=== PATIENT | male | born 1950 | race Caucasian/White ===

== ENCOUNTER 2023-09-11 07:12 | Emergency (ER) | payer MEDICARE, SELFPAY ==
[2023-09-11 07:23] VITALS: BP 146/100
--- NOTE | 2023-09-11 08:22 | ED.GENMED ---
History of Present Illness
General
Chief Complaint: Musculo-Skeletal Complaint
Source: patient
Time Seen by Provider: 09/11/23 08:14
Travel History
Have you had any contact with someone who has COVID-19?: No
Do you have any symptoms of coronavirus? Fever > 100 degrees, chills, cough, shortness of breath, sore throat, loss of taste or smell, muscle aches, or headache?: No
History of Present Illness
History of Present Illness:
This patient is a 73-year-old male presents emergency department complaints of neck discomfort. The patient states that he was cutting the grass on Monday using a tractor and had an attached garden cart. He was making a lot of movements to try
maneuver the cart and feels that he 'twisted it' referring to his neck. He describes it as a gradual onset of a 'pulled muscle' type of pain the first was on the right side but is now much worse on the left side. Any movement makes the pain worse.
He says the pain feels like a really bad 'charley horse'. He denies associated trauma or fall, headache, dizziness, visual changes, change in swallowing, chest pain, dyspnea, numbness, tingling, focal weakness, chest pain, dyspnea, abdominal pain,
or other complaints. He denies swelling, sore throat, ear pain, fever, chills.
Past History
Past History
ED Past Medical History: Arrthythmia (Atrial fibrillation ), HTN and Hypercholesterolemia
ED Past Surgical History: None
Social History
Tobacco: Smoker
Alcohol: Daily (wine 2-3 glasses Medium size)
Drug: None
Personal:
Living: with family
Employment: Not employed
Family History
Family History: Negative Diabetes, Hypertension, Early CAD, Asthma or Cancer
Phy Exam
Physical Exam
Physical Exam:
GENERAL: Alert , in no apparent distress
EYE: pupils equal and reactive, no photophobia, no nystagmus, EOMI
NECK: Patient holds neck in midline position, hesitant to range due to discomfort, trachea midline, no swelling or redness no
ENT: o/p clr, mmm, no trismus, no drool, voice clear, TMs clear bilaterally.
CARDIAC: Irregularly irregular
LUNGS: Clear breath sounds bilaterally, no acute respiratory distress, no wheezes/rales/rhonchi
ABDOMEN: Soft, without focal tenderness, no r/g, no cvat
NEUROLOGICAL: Alert and oriented, no focal neuro deficits, sensation intact, cranial nerves II through XII intact, motor 5 out of 5
SKIN: Warm and dry, skin intact.
MUSCULOSKELETAL: No edema, well perfused.
PSYCH: Normal and appropriate interaction.
Course
Orders/Labs/Results
Orders:
Orders
09/11/23 07:16
EKG [Electrocardiogram (*1)] Stat
Reason for Study: Atrial Fibrillation
09/11/23 07:17
EKG- Treatment ONCE
09/11/23 08:22
diazePAM [Valium Injection] 5 mg IV NOW STA
09/11/23 10:25
Dexamethasone Sod Phosphate [Decadron] 10 mg IV NOW STA
09/11/23 12:21
Morphine Sulfate 4 mg IV NOW STA
Vital Signs
Initial and Last Documented VS:
Initial Vital Signs
Temp Pulse Resp BP Pulse Ox
98.0 F 100 18 146/100 99
09/11/23 07:23 09/11/23 07:23 09/11/23 07:23 09/11/23 07:23 09/11/23 07:23
Last Documented Vital Signs
Temp Pulse Resp BP Pulse Ox
98.0 F 74 18 148/94 96
09/11/23 07:23 09/11/23 11:02 09/11/23 11:02 09/11/23 11:02 09/11/23 11:02
*Critical Care Note
Total Time (30-74mins, 75-104mins- exclusive of procedures): Not Applicable
Update Note
Update Note:
Patient presents to the Emergency Department with ___neck pain
Number and Complexity of Problems Addressed at the Encounter
� Chronic conditions affecting care:
� Acute Exacerbation and/or Progression of Chronic Illness:
� Differential Diagnosis includes: But not limited to pharyngitis, muscular strain, dissection, etc. etc.
Amount and/or Complexity of Data to be Reviewed and Analyzed
� I performed an independent evaluation of and my interpretation is:
EKG:read by me afib, no acute ischemia
CT:
Xrays:
Laboratory Studies:
Other:
� Review of other/old records reveals:
� Clinical information was obtained by an independent historian:
� Prescriptions/Medications Considered but not given:
� Further testing considered but not performed: Strongly doubt dissection given mechanism of injury, how patient describes pain, gradual onset, etc. Of note, no associated airway or neurological symptoms noted. Will medicate
and reassess
Risk of Complications and/or Morbidity or Mortality of Patient Management
� Social determinants of health affecting care:
� Discussion with other providers (PCP, Hospitalists, Consultants, etc):
� Escalation of care including admission/observation vs risk of discharge considered: Multiple reassessments of patient, he has required several doses of medication to ultimately get relief. He feels much better now, got up out
of the bed himself, now freely nods yes and no without difficulty. He remains neurologically intact, no bruit noted, no chest pain, etc. Strongly suspect muscular strain based on history and physical, discussed with patient portance of follow-up
and reasons to return to the ER
ED Attending Note
-
Portions of this chart may have been created with voice recognition software.� Occasional wrong word or��sound alike� substitutions may have occurred due to the inherent limitations of voice recognition software.
Discharge Plan
Departure
Patient Disposition: Home (Routine Discharge)
Date of Disposition: 09/11/23
Time of Disposition: 13:21
Patient with high blood pressure during this ER visit?: Yes
Condition: Good
Discharge Problem:
Neck strain
Instructions: Cervical Muscle Strain, BLOOD PRESSURE
Prescriptions:
New
cyclobenzaprine 10 mg tablet
10 mg PO BID PRN (Reason: pain) Qty: 13 0RF
No Action
metoprolol succinate 25 MG tablet extended release 24 hr
12.5 mg PO BID
digoxin 0.125 MG tablet
0.125 mg PO DAILY
midodrine 2.5 mg Tablet
2.5 mg PO TID
atorvastatin 40 mg Tablet
40 mg PO DAILY
tramadol 50 mg Tablet
50 mg PO Q6H PRN (Reason: pain)
acetaminophen 500 mg Tablet
1,000 mg PO Q6H PRN (Reason: pain)
Eliquis 5 mg Tablet
5 mg PO BID
(DME) OneTouch Verio test strips Strip
Qty: 100 0RF
Rx Instructions:
As Directed Test 2 times per day in alternating pattern
E11.65
(DME) lancets [OneTouch Delica Plus Lancet] 33 gauge Misc
Qty: 100 0RF
Rx Instructions:
Test BID in pattern provided As Directed
E 11.65
prednisone 10 mg tablet
30 mg PO DAILY
Rx Instructions:
30mg daily 1 day, 20mg daily 2 days, 10mg daily last 2 days.
metformin 1,000 mg tablet
1,000 mg PO BID@0800,1700
Referrals:
Navin Baker DO [Family Provider] - Follow up in 2-3 days
Activity Restrictions/Additional Instructions:
IF YOU DEVELOP PERSISTENT/NEW/WORSENING PAIN, TROUBLE SWALLOWING, SEVERE HEADACHE, NUMBNESS, TINGLING, WEAKNESS, SWELLING, OR OTHER WORRISOME SIGNS, PLEASE RETURN TO THE ER IMMEDIATELY.
Interventions
Interventions:
*Risk Screen - Suicide Last Done: 09/11/23 07:25
*General Assessment Last Done: 09/11/23 07:25
*Neglect/Abuse Screening Last Done: 09/11/23 07:25
ED-Musculoskeletal Assessment Last Done: 09/11/23 07:49
Discharge Date and Time
Print Language: KENYAN
[2023-09-11] MEDS: VALIUM INJECTION 5 MG IV (08:42)
[2023-09-11] MEDS: DECADRON 10 MG IV (10:58)
[2023-09-11 11:02] VITALS: BP 148/94
[2023-09-11] MEDS: MORPHINE SULFATE 4 MG IV (12:24)
== END 2023-09-11 13:33 | disposition home or self-care (01) ==
LOC: EMR 07:12
PROVIDERS: EMERGENCY PHYSICIAN Emergency Medicine; FAMILY PHYSICIAN Family Medicine
DX: S16.1XXA Strain of muscle, fascia and tendon at neck level, initial encounter (principal); X50.1XXA Overexertion from prolonged static or awkward postures, initial encounter; Y93.H2 Activity, gardening and landscaping; Y92.007 Garden or yard of unspecified non-institutional (private) residence as the place of occurrence of the external cause; I10 Essential (primary) hypertension; E78.00 Pure hypercholesterolemia, unspecified; I48.91 Unspecified atrial fibrillation; F17.200 Nicotine dependence, unspecified, uncomplicated
CPT/HCPCS: 99284; 96374; 96375 ×2; 93005

== ENCOUNTER 2024-02-19 15:16 | Emergency (ER) | payer OTHER, SELFPAY ==
[2024-02-19] VITALS (7 sets, daily range): BP systolic 117–145; BP diastolic 74–92
--- NOTE | 2024-02-19 15:58 | ED.MUSCINJ ---
HPI-Injury
General
Chief Complaint: Musculo-Skeletal Complaint
Source: patient
Exam Limitations: none
Time Seen by Provider: 02/19/24 15:51
Nursing documentation reviewed up to this point in time: agreed with
History of Present Illness-Injury
Is this injury a work related problem?: No
Is pt an associate of [facility]?: No
Initial Injury comments:
Patient states a few days ago he rotated his mattress. Shortly after developed right hip and groin pain. Pain continues to worsen. Unable to bear weight. Brought to ED via EMS for eval. Taking gabapentin and tramadol without improvement. On
arrival to ED, temp 101. He denies chills, cough, abdominal pain, offers no other complaints.
Past History
Past History
ED Past Medical History: Arrthythmia (Atrial fibrillation ), HTN and Hypercholesterolemia
ED Past Surgical History: None
Social History
Tobacco: Smoker
Alcohol: Daily (wine 2-3 glasses Medium size)
Drug: None
Personal:
Living: with family
Employment: Not employed
Family History
Family History: Negative Diabetes, Hypertension, Early CAD, Asthma or Cancer
Review of Systems
Review of Systems
Allergies reviewed?: Yes
All Other Systems: ROS reviewed and negative except as documented in HPI and ROS
Constitutional: Reports fever
EENT: Reports no symptoms
Respiratory: Reports no symptoms
Cardiac: Reports no symptoms
ABD/GI: Reports no symptoms
: Reports no symptoms
Musculoskeletal: Reports joint pain (pain to right hip)
Skin: Reports no symptoms
Neurological: Reports no symptoms
Psychiatric: Reports no symptoms
Musculoskeletal Injury Exam
Musculoskeletal Injury Exam
Right Hip:
Pain with Movement?: Moderate
Tender to palpation?: Moderate
Soft tissue swelling?: None
External deformity and angulation?: None
Joint effusion?: None
Contusion?: None
Hematoma-local bleeding into tissue?: None
Strain- Sprain- Tear (Connective tissue injury)?: Moderate
Crepitus with movement?: No
Joint instability?: No
Malalignment/deformity?: No
Range of motion: Limited
Distal skin color and temperature: normal-warm & good color
Capillary Refill: normal
Normal distal neurovascular exam?: Yes
Peripheral Pulses: posterior tibial (right): 3+ and dorsalis pedis (right): 3+
Phy Exam
General Physical Exam
General Presentation: well appearing and no apparent distress
General age: appears stated age
General Skin: warm and dry
General Habitus: normal
General Mental: alert
Cardiovascular Exam
Cardiovascular Exam: regular rate/rhythm and no edema
Pulmonary Exam
Pulmonary Exam: lungs clear and no respiratory distress
Gastrointestinal Exam
Gastrointestinal Exam: non tender, soft and no organomegaly
Musculoskeletal Exam
Musculoskeletal Exam: neuro vasc intact
Skin Exam
Skin Exam: normal color, warm/dry and no rash
Psychiatric Exam
Psychiatric Exam: normal mood/affect
Injury Course
Orders/Labs/Results
Orders:
Orders
02/19/24 15:56
Acetaminophen [Tylenol] 1,000 mg PO NOW STA
Morphine Sulfate 4 mg IV NOW STA
Ondansetron Injectable [Zofran] 4 mg IV NOW STA
Hip, Right 2-3 Views [CR Hip - RT w/wo Pel 2-3 Vw*] Urgent
Comment:
Reason For Exam: pain
Include a pelvis x-ray?: Yes
02/19/24 15:57
CR Chest - 2 Views Urgent
Comment:
Reason For Exam: fever
02/19/24 16:12
COVID-19 Antigen Urgent
Source: Nasal Swab
Complete Blood Count/With Diff Urgent
Comprehensive Metabolic Panel Urgent
Influenza A+B Rapid Molecular Urgent
[facility] Source: Nasal Swab
Specimen Description:
02/19/24 17:27
HYDROmorphone [Dilaudid] 0.5 mg .ROUTE .STK-MED ONE
02/19/24 17:29
HYDROmorphone [Dilaudid] 0.5 mg IV NOW STA
02/19/24 19:11
Urinalysis Reflex To Culture Urgent
Date Specimen was Collected: 02/19/24
Time Specimen was Collected: 16:03
Urine Microscopic Reflex Cult Urgent
02/19/24 20:17
Oxycodone/Acetaminophen [Percocet 5/325] 1 tablet PO NOW STA
Abnormal Lab Results
02/19/24 02/19/24
16:12 19:11
RBC 3.65 L 10^6/uL
(4.70-6.10)
Hct 37.7 L %
(39.0-52.0)
MCV 103.3 H fL
(80.0-94.0)
MCH 35.6 H pg
(27.0-31.0)
Absolute Neuts (auto) 7.0 H 10^3/uL
(1.4-6.5)
Absolute Monos (auto) 1.2 H 10^3/uL
(0.1-0.6)
Lymphocytes % 17.1 L %
(20.5-51.1)
Monocytes % 11.7 H %
(1.7-9.3)
Chloride 96 L mmol/L
(98-107)
BUN 22 H mg/dl
(9-20)
Glucose 127 H mg/dl
(70-99)
Total Bilirubin 1.7 H mg/dl
(0.2-1.3)
Urine Albumin (Reflex) 3+ A
(Neg - Trace)
02/19/24 16:12
02/19/24 16:12
*Critical Care Note
Total Time (30-74mins, 75-104mins- exclusive of procedures): Not Applicable
ED Attending Note
-
Portions of this chart may have been created with voice recognition software.� Occasional wrong word or��sound alike� substitutions may have occurred due to the inherent limitations of voice recognition software.
Discharge Plan
Departure
Patient Disposition: Home (Routine Discharge)
Date of Disposition: 02/19/24
Time of Disposition: 20:17
Patient with high blood pressure during this ER visit?: No
Condition: Good
Covid-19: Not Applicable
Discharge Problem:
Acute right hip pain
Instructions: Muscle and Bone Pain (DC), Using Cold for Pain
Prescriptions:
New
oxycodone-acetaminophen [Percocet] 5-325 mg tablet
1 tab PO Q4HPRN PRN (Reason: pain) Qty: 12 0RF
No Action
metoprolol succinate 25 MG tablet extended release 24 hr
12.5 mg PO BID
digoxin 0.125 MG tablet
0.125 mg PO DAILY
midodrine 2.5 mg Tablet
2.5 mg PO TID
atorvastatin 40 mg Tablet
40 mg PO DAILY
tramadol 50 mg Tablet
50 mg PO Q6H PRN (Reason: pain)
acetaminophen 500 mg Tablet
1,000 mg PO Q6H PRN (Reason: pain)
Eliquis 5 mg Tablet
5 mg PO BID
(DME) OneTouch Verio test strips Strip
Qty: 100 0RF
Rx Instructions:
As Directed Test 2 times per day in alternating pattern
E11.65
(DME) lancets [OneTouch Delica Plus Lancet] 33 gauge Misc
Qty: 100 0RF
Rx Instructions:
Test BID in pattern provided As Directed
E 11.65
prednisone 10 mg tablet
30 mg PO DAILY
Rx Instructions:
30mg daily 1 day, 20mg daily 2 days, 10mg daily last 2 days.
metformin 1,000 mg tablet
1,000 mg PO BID@0800,1700
cyclobenzaprine 10 mg tablet
10 mg PO BID PRN (Reason: pain) Qty: 13 0RF
Referrals:
Navin Baker DO [Family Provider] - Tomorrow
Interventions
Interventions:
*Risk Screen - Suicide Last Done: 02/19/24 15:21
*General Assessment Last Done: 02/19/24 15:21
*Neglect/Abuse Screening Last Done: 02/19/24 15:21
*Nursing Disposition Last Done: 02/19/24 22:33
ED-Musculoskeletal Assessment Last Done: 02/19/24 16:33
Discharge Date and Time
Discharge Date/Time: 02/19/24 22:35
Print Language: SAMI
[2024-02-19] MEDS: MORPHINE SULFATE 4 MG IV (16:09)
[2024-02-19] MEDS: ZOFRAN 4 MG IV (16:10)
[2024-02-19] MEDS: TYLENOL 1000 MG PO (16:10)
[2024-02-19 16:26] LABS: % Basophils 0.4 % (0-2); % Eosinophils 0.7 % (0-6); % Immature Granulocytes 0.4 % (0-0.5); % Lymphocytes 17.1 % (20.5-51.1); % Monocytes 11.7 % (1.7-9.3); % Neutrophils 69.7 % (42.2-75.2); Absolute Eosinophils 0.1 10^3/uL (0-0.7); Absolute Lymphocytes 1.7 10^3/uL (1.2-3.4); Absolute Monocytes 1.2 10^3/uL (0.1-0.6); Hematocrit 37.7 % (39.0-52.0); Mean Corp Hgb Conc. 34.5 g/dL (33.0-37.0); Mean Corpuscular Hgb 35.6 pg (27.0-31.0); Mean Corpuscular Volume 103.3 fL (80.0-94.0); Nucleated Red Blood Cells % 0 % (-); Platelet Count 198 10^3/uL (130-400); Red Blood Cell Count 3.65 10^6/uL (4.70-6.10); Red Cell Dist. Width 12.3 % (11.5-14.5)
[2024-02-19 16:39] LABS: ALT (SGPT) 18 U/L (0-50); AST (SGOT) 29 U/L (17-59); Alkaline Phosphatase 68 U/L (38-126); Blood Urea Nitrogen 22 mg/dl (9-20); Calcium 9.3 mg/dl (8.4-10.2); Carbon Dioxide 24 mmol/L (22-30); Chloride 96 mmol/L (98-107); Glucose 127 mg/dl (70-99); Potassium 4.4 mmol/L (3.5-5.1); Sodium 136 mmol/L (135-145); Total Bilirubin 1.7 mg/dl (0.2-1.3); Total Protein 6.8 g/dl (6.3-8.2); eGFR > 60.00
[2024-02-19 16:48] LABS: COVID-19 Antigen Negative (Negative)
[2024-02-19] MEDS: DILAUDID 0.5 MG IV (17:29)
[2024-02-19 19:20] LABS: Urine Albumin 3+ (Neg - Trace); Urine Bilirubin Negative (Negative); Urine Character Clear (Clear); Urine Color Yellow; Urine Glucose Negative (Negative); Urine Ketone Negative (Negative); Urine Leukocyte Negative (Negative); Urine Nitrite Negative (Negative); Urine Occult Blood Negative (Negative); Urine Specific Gravity 1.015 (<1.030); Urine Urobilinogen Negative (Neg - 1+)
[2024-02-19 19:32] LABS: Urine Squamous Cell 16-20 /LPF (Few); Urine White Cell 0-2 /HPF (0-5)
[2024-02-19] MEDS: PERCOCET 5/325 1 TABLET PO (22:00)
== END 2024-02-19 22:35 | disposition home or self-care (01) ==
LOC: EMR 15:16
PROVIDERS: Nurse Practitioner; EMERGENCY PHYSICIAN Emergency Medicine; FAMILY PHYSICIAN Family Medicine
DX: M25.551 Pain in right hip (principal); R10.30 Lower abdominal pain, unspecified; I48.91 Unspecified atrial fibrillation; E78.00 Pure hypercholesterolemia, unspecified; F17.200 Nicotine dependence, unspecified, uncomplicated; I10 Essential (primary) hypertension
CPT/HCPCS: 96374; 96375; 99284; 71046; 73502; 80053; 81003; 81015; 85025; 87502; 87811

== ENCOUNTER 2024-10-25 09:32 | Emergency (ER) | payer OTHER, SELFPAY ==
[2024-10-25 09:34] VITALS: BP 121/72
[2024-10-25] MEDS: FLEXERIL 5 MG PO (10:41)
--- NOTE | 2024-10-25 10:43 | ED.GENMED ---
History of Present Illness
<Pieter Moya MD, Resident - Last Filed: 10/25/24 13:11>
General
Chief Complaint: Musculo-Skeletal Complaint
Source: patient
Exam Limitations: none
Time Seen by Provider: 10/25/24 10:22
Nursing documentation reviewed up to this point in time: agreed with
History of Present Illness
History of Present Illness:
This is a 74-year-old male with history of A-fib on Eliquis and digoxin, history of hypertension uses midodrine, history of arthritis on tramadol, history of prediabetes on metformin, hyperlipidemia on atorvastatin presented the emergency department
with complaints of left-sided shoulder blade area pain. He reports that he has known arthritis in both shoulders. He experienced pain in the right shoulder 2 days ago which eventually subsided however today he felt sharp stabbing pain in the right
posterior shoulder/shoulder blade area associated with spasm. He reports that the episode was so bad that he could not move and it felt like a 'charley horse'.
He tried utilizing gabapentin however it did not help which prompted him to visit the emergency department
Denies any recent changes in medications or medical history.
Past History
<Pieter Moya MD, Resident - Last Filed: 10/25/24 13:11>
Past History
ED Past Medical History: Arrthythmia (Atrial fibrillation ), Hypercholesterolemia, Other (Hearing impairment) and Other (Hypotension)
ED Past Surgical History: None
Social History
Tobacco: Smoker
Alcohol: Daily (wine 2-3 glasses Medium size)
Drug: None
Personal:
Living: with family
Employment: Not employed
Family History
Family History: Negative Diabetes, Hypertension, Early CAD, Asthma or Cancer
Review of Systems
<Pieter Moya MD, Resident - Last Filed: 10/25/24 13:11>
Review of Systems
Allergies reviewed?: Yes
Constitutional: Denies fever or chills
EENT: Denies sore throat
Respiratory: Denies cough
Cardiac: Denies chest pain
ABD/GI: Denies abdominal pain
: Denies dysuria
Musculoskeletal: Reports joint pain (Left posterior shoulder) and muscle pain
Skin: Denies itching
Neurological: Denies dizzy
Endocrine: Denies polyuria
Phy Exam
<Pieter Moya MD, Resident - Last Filed: 10/25/24 13:11>
General Physical Exam
General Presentation: no apparent distress and other (Hard of hearing)
General age: appears stated age
General Skin: warm
General Habitus: elderly
General Mental: alert
General Hydration: appears well hydrated
Cardiovascular Exam
Cardiovascular Exam: regular rate/rhythm and no murmur
Pulmonary Exam
Pulmonary Exam: lungs clear, no respiratory distress and no cough
Neurological Exam
Neurological Exam: alert and oriented x3
Musculoskeletal Exam
Musculoskeletal Exam: neuro vasc intact and other (Full range of motion of left shoulder joint, slight limitation of range of motion of right shoulder. Tender to palpation and muscle spasm and upper left parathoracic region)
Course
<Pieter Moya MD, Resident - Last Filed: 10/25/24 13:11>
Orders/Labs/Results
Orders:
Orders
10/25/24 10:34
Cyclobenzaprine HCl [Flexeril] 5 mg PO NOW STA
CR Ribs-left 3 Vw W/pa Chest Urgent
Comment:
Reason For Exam: scapular region pain on left
10/25/24 10:43
Basic Metabolic Panel Urgent
Complete Blood Count/No Diff Urgent
Digoxin Urgent
Magnesium Urgent
10/25/24 11:26
Magnesium Oxide 500 mg PO NOW STA
10/25/24 11:32
Electrocardiogram (*1) Urgent
Reason for Study: Other
Other Reason for Exam: Shoulder pain
EKG- Treatment ONCE
10/25/24 11:55
Add On- LAB Urgent
Tests Added?: serum troponin
10/25/24 11:58
Troponin I Urgent
Abnormal Lab Results
10/25/24
10:43
RBC 3.65 L 10^6/uL
(4.70-6.10)
Hct 37.8 L %
(39.0-52.0)
MCV 103.6 H fL
(80.0-94.0)
MCH 35.6 H pg
(27.0-31.0)
Chloride 109 H mmol/L
(98-107)
Magnesium 1.5 L mg/dl
(1.6-2.3)
10/25/24 10:43
10/25/24 10:43
Vital Signs
Initial and Last Documented VS:
Initial Vital Signs
Temp Pulse Resp BP Pulse Ox
37.3 C 82 16 121/72 99
10/25/24 09:34 10/25/24 09:34 10/25/24 09:34 10/25/24 09:34 10/25/24 09:34
Last Documented Vital Signs
Temp Pulse Resp BP Pulse Ox
37.3 C 82 16 121/72 99
10/25/24 09:34 10/25/24 09:34 10/25/24 09:34 10/25/24 09:34 10/25/24 10:49
<Chito Leung MD - Last Filed: 10/25/24 13:11>
Orders/Labs/Results
Orders:
Orders
10/25/24 10:34
Cyclobenzaprine HCl [Flexeril] 5 mg PO NOW STA
CR Ribs-left 3 Vw W/pa Chest Urgent
Comment:
Reason For Exam: scapular region pain on left
10/25/24 10:43
Basic Metabolic Panel Urgent
Complete Blood Count/No Diff Urgent
Digoxin Urgent
Magnesium Urgent
10/25/24 11:26
Magnesium Oxide 500 mg PO NOW STA
10/25/24 11:32
Electrocardiogram (*1) Urgent
Reason for Study: Other
Other Reason for Exam: Shoulder pain
EKG- Treatment ONCE
10/25/24 11:55
Add On- LAB Urgent
Tests Added?: serum troponin
10/25/24 11:58
Troponin I Urgent
Abnormal Lab Results
10/25/24
10:43
RBC 3.65 L 10^6/uL
(4.70-6.10)
Hct 37.8 L %
(39.0-52.0)
MCV 103.6 H fL
(80.0-94.0)
MCH 35.6 H pg
(27.0-31.0)
Chloride 109 H mmol/L
(98-107)
Magnesium 1.5 L mg/dl
(1.6-2.3)
10/25/24 10:43
10/25/24 10:43
Vital Signs
Initial and Last Documented VS:
Initial Vital Signs
Temp Pulse Resp BP Pulse Ox
37.3 C 82 16 121/72 99
10/25/24 09:34 10/25/24 09:34 10/25/24 09:34 10/25/24 09:34 10/25/24 09:34
Last Documented Vital Signs
Temp Pulse Resp BP Pulse Ox
37.3 C 82 16 121/72 99
10/25/24 09:34 10/25/24 09:34 10/25/24 09:34 10/25/24 09:34 10/25/24 10:49
<Pieter Moya MD, Resident - Last Filed: 10/25/24 13:11>
MDM/Problems Addressed
Differential Diagnosis Includes:
Muscle spasm vs unlikely rib fracture vs unlikely pulmonary etiology
MDM/Problems Addressed:
Check CBC, electrolytes, mag, digoxin level
1 dose of cyclobenzaprine 5 mg
Check left rib series
update:
CBC with hemoglobin of 13, normal white count
BMP with electrolytes within normal limits, magnesium slightly lower side 1.5; will replete with 500 mg of magnesium oxide
Digoxin level within normal limits
X-ray with no evidence of acute cardiopulmonary abnormality. No displaced rib fracture
will get EKG.
If negative will discharge the patient on cyclobenzaprine.
EKG with A-fib, ST and T wave abnormality
He has a known history of A-fib ; will add on tropes before discharge
trop 0.027.
patient remained asymptomatic.
Shared decision was made with the patient for discharge home With instructions to follow-up with outpatient family doctor. A short prescription of cyclobenzaprine was sent to the pharmacy
Return precautions reviewed.
<Pieter Moya MD, Resident - Last Filed: 10/25/24 13:11>
*Pulse Oximetry
SaO2: 99
Oxygen Mode of Delivery: Room air
Patient hypoxic: no
*Critical Care Note
Total Time (30-74mins, 75-104mins- exclusive of procedures): Not Applicable
ED Attending Note
<Pieter Moya MD, Resident - Last Filed: 10/25/24 13:11>
-
Portions of this chart may have been created with voice recognition software.� Occasional wrong word or��sound alike� substitutions may have occurred due to the inherent limitations of voice recognition software.
<Chito Leung MD - Last Filed: 10/25/24 13:11>
ED Attending Note
Patient seen and examined by attending physician: Yes
I performed a history and physical exam of patient and discussed management with resident, I reviewed resident's note and agree with documented findings and plan of care.: Yes
ED Attending Note:
I have seen and evaluated the patient with a [id number] encounter. I have spoken to the resident and involved in the medical history, the physical exam, medical decision making.
Evaluation and management service: agree unless noted differently below.
Results interpretation: agree unless noted differently below.
Focused HPI: 74-year-old male with history of A-fib presents to the ER for evaluation of shoulder pain. Patient reports that he has arthritis in his shoulders right greater than left and he tends to favor carrying things on the left side. Lately
he has been having pain in the left shoulder/ left scapula that he describes as a spasm along the. He says that it is worse when he moves. He says that he takes gabapentin, tramadol, Tylenol and has been using a heating pack but still has some
pain so he came to get checked out. He denies any chest pain or shortness of breath. He denies any trauma or injury.
Physical exam: Awake and alert no acute distress. Lungs sound clear to auscultation. No cardiac rubs gallops or murmurs but irregular rhythm. He has reproducible tenderness along the medial margin of the left scapula. No edema in upper
extremity, good pulses.
Medical Decision Makin-year-old male presents with left shoulder/scapular pain described as muscle spasm. Vitals and exam as above. Labs did show mild hypomagnesemia. Troponin negative with consistent symptoms for days sufficient to rule out
acute DE. He did have some nonspecific changes on his EKG but no chest pain. Suspect likely muscular spasm. Symptoms resolved with muscle relaxer here. Stable for discharge. Follow-up with primary care physician.
Discharge Plan
Departure
Patient Disposition: Home (Routine Discharge)
Date of Disposition: 10/25/24
Time of Disposition: 13:08
Patient with high blood pressure during this ER visit?: No
Condition: Good
Discharge Problem:
Shoulder blade pain, Muscle spasm
Instructions: Muscle spasm - ED discharge instructions
Prescriptions:
New
cyclobenzaprine 5 mg tablet
5 mg PO HS PRN (Reason: muscle spasm) Qty: 14 0RF
No Action
metoprolol succinate 25 MG tablet extended release 24 hr
12.5 mg PO BID
digoxin 0.125 MG tablet
0.125 mg PO DAILY
midodrine 2.5 mg Tablet
2.5 mg PO TID
atorvastatin 40 mg Tablet
40 mg PO DAILY
tramadol 50 mg Tablet
50 mg PO Q6H PRN (Reason: pain)
acetaminophen 500 mg Tablet
1,000 mg PO Q6H PRN (Reason: pain)
Eliquis 5 mg Tablet
5 mg PO BID
(DME) OneTouch Verio test strips Strip
Qty: 100 0RF
Rx Instructions:
As Directed Test 2 times per day in alternating pattern
E11.65
(DME) lancets [OneTouch Delica Plus Lancet] 33 gauge Misc
Qty: 100 0RF
Rx Instructions:
Test BID in pattern provided As Directed
E 11.65
prednisone 10 mg tablet
30 mg PO DAILY
Rx Instructions:
30mg daily 1 day, 20mg daily 2 days, 10mg daily last 2 days.
metformin 1,000 mg tablet
1,000 mg PO BID@0800,1700
cyclobenzaprine 10 mg tablet
10 mg PO BID PRN (Reason: pain) Qty: 13 0RF
oxycodone-acetaminophen [Percocet] 5-325 mg tablet
1 tab PO Q4HPRN PRN (Reason: pain) Qty: 12 0RF
Referrals:
Navin Baker DO [Family Provider, Family Practice] - Follow up in 1 week
Activity Restrictions/Additional Instructions:
You were seen at [facility] emergency department with concerns of left sided shoulder blade pain and spasm. While you were in the hospital we performed blood work including complete blood count which was unremarkable, complete metabolic
panel which was unremarkable we also checked your serum magnesium which was slightly on the lower side and we gave you 1 tablet of 500 mg magnesium oxide. We also checked your digoxin level which came back within normal limits. You also had a rib
with chest x-ray series which showed no acute cardiopulmonary disease process or any displaced rib fractures. EKG showed A-fib with some ST and T wave changes. We checked your serum troponin which came back Unremarkable. You received 1 dose of
cyclobenzaprine tablet for muscle spasm. A prescription was also sent to the pharmacy to be used on as-needed basis. If you develop any worsening of the current symptoms or any worrisome concerns please return to the emergency. Please follow-up
with your family doctor within a week.
Interventions
Interventions:
*Risk Screen - Suicide Last Done: 10/25/24 09:36
*General Assessment Last Done: 10/25/24 10:15
*Neglect/Abuse Screening Last Done: 10/25/24 09:36
*ED- Fall Risk Assessment Last Done: 10/25/24 10:15
*ED COVID-19 Vaccine History Last Done: 10/25/24 10:15
ED-Musculoskeletal Assessment Last Done: 10/25/24 10:17
Discharge Date and Time
Print Language: [place]
[2024-10-25 11:00] LABS: Hematocrit 37.8 % (39.0-52.0); Hemoglobin 13.0 g/dL (13.0-18.0); Mean Corp Hgb Conc. 34.4 g/dL (33.0-37.0); Mean Corpuscular Volume 103.6 fL (80.0-94.0); Platelet Count 198 10^3/uL (130-400); Red Cell Dist. Width 12.4 % (11.5-14.5)
[2024-10-25 11:23] LABS: Blood Urea Nitrogen 13 mg/dl (9-20); Calcium 9.3 mg/dl (8.4-10.2); Carbon Dioxide 22 mmol/L (22-30); Chloride 109 mmol/L (98-107); Digoxin 1.1 ng/ml (0.8-2.0); Glucose 89 mg/dl (70-99); Magnesium 1.5 mg/dl (1.6-2.3); Potassium 4.6 mmol/L (3.5-5.1); Sodium 137 mmol/L (135-145); eGFR > 60.00
[2024-10-25] MEDS: MAGNESIUM OXIDE 500 MG PO (11:59)
[2024-10-25 12:48] LABS: Troponin I 0.027 ng/ml
[2024-10-25 14:00] VITALS: BP 132/78
== END 2024-10-25 14:03 | disposition home or self-care (01) ==
LOC: EMR 09:32
PROVIDERS: EMERGENCY PHYSICIAN Emergency Medicine; FAMILY PHYSICIAN Family Medicine
DX: M25.512 Pain in left shoulder (principal); M62.838 Other muscle spasm; F17.200 Nicotine dependence, unspecified, uncomplicated; I48.91 Unspecified atrial fibrillation; I10 Essential (primary) hypertension; Z79.01 Long term (current) use of anticoagulants; R73.03 Prediabetes
CPT/HCPCS: 99285; 71101; 80048; 80162; 83735; 84484; 85027; 93005